=== PATIENT | female | born 1975 | race Two or more races ===

== ENCOUNTER 2020-10-11 16:25 | Emergency (ER) | payer BC, OTHER ==
[~2020-10-11] VITALS: Ht 165.1 cm; Wt 68.0 kg
[2020-10-11 16:34] VITALS: BP 158/98
== END 2020-10-11 20:16 | disposition home or self-care (01) ==
LOC: EDBD 16:25 → ER 16:25
DX: M47.892 Other spondylosis, cervical region (principal); I10 Essential (primary) hypertension; Z90.710 Acquired absence of both cervix and uterus; V49.9XXA Car occupant (driver) (passenger) injured in unspecified traffic accident, initial encounter; Y93.89 Activity, other specified; Y92.89 Other specified places as the place of occurrence of the external cause; Y99.8 Other external cause status
CPT/HCPCS: 72040; 72070